=== PATIENT | female | born 2000 | race African-American/Black ===

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

== ENCOUNTER 2025-04-13 12:56 | Emergency (ER) | payer OTHER, SELFPAY ==
[2025-04-13] MEDS ORDERED: Ketorolac Tromethamine 30 MG (1 mL) VIAL ONE (14:10)
== END 2025-04-13 15:00 | disposition home or self-care (01) ==
LOC: ERS 12:56
DX: S83.91XA Sprain of unspecified site of right knee, initial encounter (principal); X50.1XXA Overexertion from prolonged static or awkward postures, initial encounter
CPT/HCPCS: 96372; 99283; J1885